=== PATIENT | female | born 1970 | race Caucasian/White ===

== ENCOUNTER 2016-11-30 16:59 | Emergency (ER) | payer BC ==
--- NOTE | 2016-11-30 18:00 | DIAGNOSTIC IMAGING REPORT ---
PROCEDURE: XR LUMBAR SPINE 2 OR 3 VIEWS INDICATION: Fell off horse. Initial encounter. TECHNIQUE: Three views. COMPARISON: None. FINDINGS: Normal alignment without fracture. Straightening of the lumbar spine. Normal disc spaces and soft tissues. IMPRESSION: 1. Loss of lordosis suggestive of muscular spasm.
--- NOTE | 2016-11-30 18:02 | DIAGNOSTIC IMAGING REPORT ---
PROCEDURE: XR HIP BILATERAL INDICATION: Fell off horse. Initial encounter. TECHNIQUE: AP view of the pelvis and hips with lateral views of the bilateral hips. COMPARISON: None. FINDINGS: RIGHT HIP: No fracture or dislocation. Normal joint space. LEFT HIP: No fracture or dislocation. Normal joint space. AP PELVIS: No suspicious osseous lesions. Soft tissues are unremarkable. IMPRESSION: 1. Negative pelvis and bilateral hips.
--- NOTE | 2016-11-30 18:07 | DIAGNOSTIC IMAGING REPORT ---
PROCEDURE: CT CERVICAL SPINE W/O CONTRAST CLINICAL INDICATION: Fell off horse, initial encounter. TECHNIQUE: Noncontrast axial images with sagittal and coronal reformations. COMPARISON: None. FINDINGS: Normal alignment without fracture. Moderate C4-5 degenerative changes. Moderate right C4-5 foraminal stenosis. Mild C4-5 spinal stenosis. Spinal soft tissues are normal. IMPRESSION: 1. No acute changes 2. C4-5 degenerative changes 3. Results discussed with Mely Santillan. All CT scans at this facility use dose modulation, iterative reconstruction, and/or weight-based dosing when appropriate to reduce radiation dose to as low as reasonably achievable.
--- NOTE | 2016-11-30 18:12 | DIAGNOSTIC IMAGING REPORT ---
PROCEDURE: CT HEAD WITHOUT CONTRAST INDICATION: TRAUMA/INJURY TECHNIQUE: Noncontrast axial images with sagittal and coronal reformations. COMPARISON: None. FINDINGS: Filiform radiodensity in one of the right frontal sulci suggestive of a tiny subarachnoid hemorrhage. There is no mass effect, parenchymal hemorrhage or midline shift. Ventricular system and brain parenchyma are normal. 1.1 cm right maxillary sinus polyp. Mastoids are clear. IMPRESSION: 1. Tiny right frontal subarachnoid hemorrhage. 2. Findings discussed with Mely Santillan at 06:03 p.m., [place] Standard Time.
--- NOTE | 2016-11-30 18:33 | ED CLINICAL REPORT ---
Clinical Report - Physicians/Mid Levels [facility] [address] [place] [address] 11/30/2016 17:03 Patient: ALFREDO RUELAS Time Seen: 17:09; initial patient contact, initial documentation, patient care assumed. Arrived- By private vehicle. Historian- patient and friend. History limited by confusion. HISTORY OF PRESENT ILLNESS Chief Complaint: FALL. Location of injuries- head, lower back, right hip and left hip. The injury occurred just prior to arrival. (friend's house). Fell 5-6 feet off a horse and landed on the ground. The patient complains of mild pain. The patient sustained a blow to the head. No neck pain or seizure. The patient had loss of consciousness. (? loc). Not dazed. REVIEW OF SYSTEMS No numbness, dizziness, loss of vision, chest pain or difficulty breathing. No weakness, headache, laceration or vomiting. She has no pain on weight bearing. All systems otherwise negative, except as recorded above. PAST HISTORY Negative. SOCIAL HISTORY Smoker - current status unknown. Alcohol use. (unknown). History of drug use unknown. No recent travel. Visiting locally. FAMILY HISTORY Unable to obtain family medical history due to patient's altered mental status. ADDITIONAL NOTES The nursing notes have been reviewed with agreement regarding the chief complaint, HPI, ROS, PMH and patient medications and allergies. PHYSICAL EXAM Vital Signs: 11/30/2016 17:07 BP: 106/90. HR: 105. RR: 16. O2 saturation: 99%. Pain level now: 410. Have been reviewed as abnormal and appear to be correct. Blood pressure normal. Tachycardic. Respiratory rate normal. Temperature normal. Oxygen saturation normal. Appearance: Alert. She is disoriented, restless and cooperative. She is alert, well hydrated, well nourished, well developed and well dressed. She appears comfortable and has normal color. Appearance is consistent with stated age. No acute distress. Head: Head non-tender. No swelling of head. Forehead: small abrasion of the upper central forehead (very tiny abrasion, less than 1cm to upper forehead near hairline to R side towards center). No erythema, tenderness, swelling, laceration or ecchymosis. No puncture wound, foreign body or deformity. Eyes: Pupils equal, round and reactive to light. EOM intact. ENT: No dental injury. Pharynx normal. Neck: Painless ROM. Non-tender. CVS: Heart sounds normal. Pulses normal. Respiratory: Breath sounds normal. Chest nontender. Abdomen: No visible injury. Soft and nontender. Back: No tenderness. ROM normal. Skin: Skin intact. Skin warm and dry. Normal skin color. Normal skin turgor. Extremities: Normal inspection. Pelvis stable. Extremities atraumatic. No lower extremity edema. Neuro: Meliton Coma Scale: 14- eyes open spontaneously (4); best verbal response- disoriented (4); best motor response- obeys commands (6). Disoriented. Altered mental status: confused, forgetful and disoriented to place and time. Patient slow to respond. Responds to simple questions and commands. Eyes open spontaneously. Best verbal response: disoriented. Best motor response: obeys commands. No cranial nerve deficit. No motor deficit. No weakness. No sensory deficit. No sensory deficit. LABS, X-RAYS, AND EKG X-Rays: LS spine series negative. Pelvis. LS-Spine X-rays: (IMPRESSION: 1. Loss of lordosis suggestive of muscular spasm. Electronically Final signed by:Matheus Bauer MD 11/30/2016 6:00:16 PM). The X-rays were interpreted by the radiologist and contemporaneously by me. Pelvis X-ray: (IMPRESSION: 1. Negative pelvis and bilateral hips. Electronically Final signed by:Matheus Bauer MD 11/30/2016 6:01:49 PM). The X-rays were interpreted by the radiologist and contemporaneously by me. CT C-Spine: No acute disease. (IMPRESSION: 1. No acute changes 2. C4-5 degenerative changes 3. Results discussed with Mely Santillan. All CT scans at this facility use dose modulation, iterative reconstruction, and/or weight-based dosing when appropriate to reduce radiation dose to as low as reasonably achievable. Electronically Final signed by:Matheus Bauer MD 11/30/2016 6:07:31 PM). CT Head: . (IMPRESSION: 1. Tiny right frontal subarachnoid hemorrhage. 2. Findings discussed with Mely Santillan at 06:03 p.m., [place] Standard Time. Electronically Final signed by:Matheus Bauer MD 11/30/2016 6:11:54 PM). The study was interpreted by the radiologist and discussed with the radiologist. Interpretation time: 1808. Laboratory Tests: UA-Culture if indicated: (SORAIDA: 11/30/2016 18:55) ( [facility] [place] 11/30/2016 19:13) Final results Test Result Flag Units (Reference) URINE COLOR YELLOW URINE APPEARANCE SL CLOUDY URINE GLUCOSE NEGATIVE (NEGATIVE) URINE BILIRUBIN NEGATIVE (NEGATIVE) URINE KETONE 1+ (NEGATIVE) URINE SPECIFIC GRAVITY >= 1.030 (1.010-1.030) URINE PH 5.5 (5.0-8.0) URINE PROTEIN 1+ (NEGATIVE) URINE UROBILINOGEN 0.2 EU/dL (0.2-1.0) URINE NITRITE NEGATIVE (NEGATIVE) URINE BLOOD 2+ (NEGATIVE) URINE LEUK ESTERASE NEGATIVE (NEGATIVE) URINE RBC 1-3 rbc/hpf (0-1) URINE WBC 1-3 wbc/hpf (0-1) URINE EPITHELIAL CELLS 1-3 EPI/hpf (0-5) URINE BACTERIA MODERATE (2+ TO 3+) (NONE SEEN) URINE COMMENT CULTURE INDICATED URINE CULTURES ARE SET-UP BASED ON THE FOLLOWING CRITERIA:POSITIVE NITRITEPOSITIVE LEUKOCYTE ESTERASEGREATER THAN 10 WHITE BLOOD CELLSMODERATE (2+) OR GREATER BACTERIA Serum Qualitative: (SORAIDA: 11/30/2016 18:17) ( [facility] 11/30/2016 18:44) Final results Test Result Flag Units (Reference) , SERUM NEGATIVE CBC w Diff: (SORAIDA: 11/30/2016 18:17) ( [facility] 11/30/2016 18:33) Final results Test Result Flag Units (Reference) WHITE BLOOD COUNT 14.4 H K/uL (4.5-11.5) RED BLOOD COUNT 4.10 M/uL (4.00-5.20) HEMOGLOBIN 12.5 gm/dL (12.0-16.0) HEMATOCRIT 36.7 % (36.0-46.0) MEAN CELL VOLUME 90 fL (80-100) MEAN CORPUSCULAR HGB 31 pg (26-34) MEAN CORPUSCULAR HGB CONC 34 g/dL (31-37) RED CELL DISTRIBUTION WIDTH 12.9 % (11.6-14.8) PLATELET COUNT 198 K/uL (150-400) NEUTROPHIL % 81.7 H % (50-75) LYMPH % 13.0 L % (25-40) MONO % 4.7 % (3-14) EOSINOPHIL % 0.1 % (0-4) BASOPHIL % 0.5 % (0-2) PT with INR: (SORAIDA: 11/30/2016 18:17) ( [facility] 11/30/2016 18:54) Final results Test Result Flag Units (Reference) INR 1.0 (0.8-1.2) Low Intensity Therapy: INR 1.5-2.0 PT range 18.5-23.1Mod.Intensity Therapy: INR 2.0-3.0 PT range 23.1-31.5High Intensity Therapy: INR 2.5-3.5 PT range 27.4-35.5High Intensity Therapy 2: INR 3.0-4.0 PT range 31.5-39.3 APTT 25 SECONDS (24-34) Urine Drug Screen: (SORAIDA: 11/30/2016 18:55) ( [facility] 11/30/2016 19:19) Final results Test Result Flag Units (Reference) AMPHETAMINE/METHAMPHETAMINE NEGATIVE (NEGATIVE) BARBITURATE NEGATIVE (NEGATIVE) BENZODIAZEPINE NEGATIVE (NEGATIVE) CANNABINOID NEGATIVE (NEGATIVE) COCAINE NEGATIVE (NEGATIVE) ECSTASY NEGATIVE (NEGATIVE) METHADONE NEGATIVE (NEGATIVE) OPIATE NEGATIVE (NEGATIVE) The urine drug screen is a qualitative screening test fordrug overdose and abuse. All screen results should beconsidered as presumptive.Drugs screened for are as follows:BenzodiazepinesCocaineAmphetamines/MetamphetaminesTHC (Tetrahydrocannabinol)OpiatesBarbituratesEcstasyMethadonePositive results are unconfirmed. For confirmation, notifythe lab for the specimen to be sent to the reference lab.All confirmations must be performed by a differentmethodology.The ingestion of natural herbal and plant productscontaining Ephedra/Ephedra metabolites can produce in urineone or more substances capable of cross reacting withamphetamine/methamphetamine immunoassays. These testsprovide a preliminary result only. A more specificalternative chemical method must be used to obtain aconfirmed analytical result. CMP: (SORAIDA: 11/30/2016 18:17) ( Msg[facility]cv[facility] 11/30/2016 18:55) Final results Test Result Flag Units (Reference) GLUCOSE 98 mg/dL (70-110) BUN 18 mg/dL (7-18) CREATININE 1.0 mg/dL (0.6-1.3) Estimated GFR >60 mL/min Estimated GFR- >60 mL/min Note: Persistent reduction over 3 months in eGFR<60 mL/min/1.73 m2 defines CKD. Patients with eGFR values>=60 mL/min/1.73 m2 may also have CKD if evidence ofpersistent proteinuria. Additional information may be foundat www.kidney.org. SODIUM 144 mmol/L (136-145) POTASSIUM 3.3 L mmol/L (3.5-5.1) CHLORIDE 106 mmol/L (98-107) CARBON DIOXIDE 25 mmol/L (21-32) CALCIUM 8.6 mg/dL (8.5-10.1) TOTAL PROTEIN 7.5 g/dL (6.4-8.2) ALBUMIN 3.7 g/dL (3.3-5.0) BILIRUBIN, TOTAL 1.3 H mg/dL (0.0-1.0) ALKALINE PHOSPHATASE 57 U/L (46-116) AST (SGOT) 42 H U/L (15-37) ALT (SGPT) 38 U/L (12-78) . PROGRESS AND PROCEDURES Peripheral IV Placement: Time: 1809. Performed by me. IV placed in the right antecubital space with an 18g angiocath with aseptic technique and good blood return; one attempt. Saline lock flushed with 3 mL saline. labs obtained from iv site. Course of Care: 1824. spoke to ALEXANDRIA Draper, at [facility] with pt report, got Dr. Quiroga, ER, to accept, and report given to him, pt will be ER to ER transfer having adult health clinical nurse specialist call als transport team 18:39 11/30/16. transfer form completed 18:42 11/30/16. having nurse call family to attempt to get pt's pmh 1929. stopped to check in on pt, pt resting quietly, asking me how she knows me, when she is going home, pt doesn't remember having xrays or ct done, doesn't remember me telling her she was being transferred for sah 1937. ems here for transport, report given to crane crew supervisor. 11/30/2016 19:07 BP: 116/60. HR: 95. RR: 18. O2 saturation: 100%. Temp: 98.6 F. Vital Signs: have been reviewed as normal and appear to be correct. Discussed case with health care provider (call [id number] Dr Quiroga ER). Agreed upon treatment plan. Health care provider will see patient in ED. Patient and friend counseled in person regarding the patient's stable condition, test results, diagnosis and need for transfer. 1810. Differential Diagnosis: Other possible considerations: fall, icb, sah, fx, internal injury, contusions, lacs, abrasions. Above considerations are based on history, physical exam, reassessment, laboratory data and other information. Differential diagnosis was discussed with patient. CLINICAL IMPRESSION Closed head injury. Traumatic subarachnoid hemorrhage. Concussion. Focal traumatic brain injury. Unknown whether a loss of consciousness occurred. Memory loss. Confusion. Fall (horse). (Electronically signed by Mely Santillan A.R.N.P. 11/30/2016 22:02)
--- NOTE | 2016-11-30 18:33 | ED NURSING NOTES ---
Clinical Report - Nurses [facility] [place] [address] 11/30/2016 17:03 Patient: ALFREDO RUELAS TRIAGE Triage time 17:07. Acuity: LEVEL 3. Chief Complaint: FALL (fell off horse. Per friend saddle slipped sideways and pt fell to ground). 17:19 11/30/16. 17:19 11/30/16. MELITON COMA SCORE: Meliton Coma Scale: 14- eyes open spontaneously (4); best verbal response- disoriented (4); best motor response- obeys commands (6). --17:19 Lashawn Roland R.N. 17:07 11/30/16. BP: 106/90. HR: 105. RR: 16. O2 saturation: 99%. Pain level now: 10. Additional comments: low back. --17:19 Lashawn Roland R.N. Weight: 58.9 kg stated. Height/Length: 63 inches Per Patient. BMI: 23. --17:15 Lashawn Roland R.N. Medications None. --18:45 Mare Cheema R.N. Allergies Penicillin. --17:18 Lashawn Roland R.N. History Arrived by private vehicle. Historian: friend and patient. Accompanied by friend. 17:19 11/30/16. This occurred just prior to arrival. Occurred at friend's house. ( Pt has complaints of lower back pain. Pt very confused at this time. Oriented only to self.). The patient had loss of consciousness of uncertain duration. She has had neck pain (denies at this time) and lower back pain. Treatment FEED RESEARCH AIDE: None. Trauma activation: Pre-hospital notification of patient arrival was not received. PAST MEDICAL HX: Tetanus status: unknown. Immunizations: status is unknown. Denies current . ( Past medical hx uncertain, pt poor historian at this time.). FALL RISK ASSESSMENT: Fall risk assessment completed. No fall risk identified. NUTRITIONAL RISK ASSESSMENT: The nutritional risk assessment revealed no deficiencies. FUNCTIONAL ASSESSMENT: Functional assessment: no impairments noted. LEARNING NEEDS ASSESSMENT: The learning needs assessment revealed no barriers. SKIN INTEGRITY ASSESSMENT: Skin integrity risk assessment completed. No skin integrity risk identified. --17:19 Lashawn Roland R.N. PROBLEMS: no known problems. Assessment 17:11/30/16. She states feels the same. --17:19 Lashawn Roland R.N. Interventions 17:11/30/16. 17:11/30/16. To treatment room. --17:19 Lashawn Roland R.N. PHYSICAL ASSESSMENT GENERAL / NEURO / PSYCH: Alert. Appears anxious. The patient is disoriented to place, time and situation. HEENT: Pupils equal, round and reactive to light. Head: abrasion present. Head non-tender. RESPIRATORY: Respirations not labored. CVS: Normal heart rate and rhythm. Pulses within normal limits. Capillary refill less than 2 seconds. GI / : Abdomen soft and nontender. EXTREMITIES: Neuro-vascular status intact to the extremity. SKIN: Skin is warm and dry. --17:20 Lashawn Roland R.N. NURSING PROGRESS NOTES 18:20 11/30/2016 Site #1 started via IV in the left antecubital space with an 18g angiocath, with aseptic technique and good blood return; one attempt. Blood drawn: rainbow set. Labeled in the presence of the patient and sent to the lab. Saline lock flushed with 10 mL saline (accessed by DAPHNIE Alan). --18:21 Mare Cheema R.N. 18:20 11/30/2016 Site #2 started via IV in the left antecubital space with an 18g angiocath, with aseptic technique and good blood return; one attempt. Blood drawn: rainbow set. Labeled in the presence of the patient and sent to the lab. Saline lock flushed with 10 mL saline (accessed by Yumiko Matt RN). --18:21 Mare Cheema R.N. ( first contact with pt. Pt appears confused. Repeating statements " what is happening, where am I going."). --18:24 Mare Cheema R.N. 18:22 11/30/16. BP: 114/59. HR: 99. RR: 16. O2 saturation: 100%. --18:24 Mare Cheema R.N. Patient ID band checked for patient name, birthdate and medical record number: patient confirmed. Instructions provided to collect clean catch urine and patient verbalized understanding. Clean catch urine collected with return of yellow-colored clear urine; sample sent to lab for urinalysis. Specimen labeled in the presence of the patient. --19:09 Mare Cheema R.N. Care transferred and report given (to Ariela Crawley RN). --19:25 Mare Cheema R.N. 19:00 11/30/2016 Started bag #1 1000 mL IV Fluids IV NS (Saline); at 1000 mL/hr over 1 hour(s) via site #1. Allergies verified and confirmed 5 rights. IV patency established. IV site checked: no pain, redness, or swelling. IV flushed thoroughly pre- and post-medication administration. --19:27 Ariela Wiley 19:40 11/30/2016 IV Fluids IV NS Continued: at the rate of 1000 mL/hr. 300 mL remaining bag #1. IV patency established. IV site checked: no pain, redness, or swelling. IV flushed thoroughly. --21:05 Ariela Wiley. DISPOSITION / DISCHARGE 19:07 11/30/16. BP: 116/60. HR: 95. RR: 18. O2 saturation: 100%. Temp: 98.6 F. Pain level now 5/10. --19:08 Mare Cheema R.N. 19:40 11/30/16. BP: 108/60. HR: 98. RR: 20. O2 saturation: 99% on room air. Pain level now: 10. --19:41 Ariela Wiley Condition at departure: stable. Transferred to [facility]. Summary of care provided to transport team. Transported via stretcher by transport team with monitor and IV. Report was given via a fax. --19:41 Ariela Wiley 19:42 11/30/2016 Site #[address] upon transfer. Good blood return present; flushes easily. --19:42 Ariela Wiley 19:42 11/30/2016 Site #[address] upon transfer. Good blood return present; flushes easily. --19:42 Ariela Wiley ( Report given to [employer] ALEXANDRIA Zimmerman). --19:42 Ariela Wiley Departure time: 19:57 Nov 30 2016. --19:57 Ariela Wiley. Locked/Released at 11/30/2016 21:06 by Ariela Wiley,
--- NOTE | 2016-11-30 18:34 | ED ORDER SUMMARY ---
..... Patient: ALFREDO RUELAS OrderSheet [facility] VisitID: [id number] [address] [place] [address] 46y, F Registration Date/Time: 11/30/2016 ORDER SHEET Weight: 58.9 kg (stated) Allergies: Penicillin GENERAL ORDERS: Lumbar Spine 2 or 3V Urgent (17:17 11/30/2016 HBivens A.R.N.P.) (Ack 17:28 RKaruga) (18:05 Domi) Hip Bilat Urgent (17:17 11/30/2016 HBivens A.R.N.P.) (Ack 17:28 RKaruga) (18:05 Domi) CT Cervical Spine wo Cont Urgent (17:17 11/30/2016 HBivens A.R.N.P.) (Ack 17:28 RKaruga) (18:05 Domi) CT Head wo Cont Urgent (17:17 11/30/2016 HBivens A.R.N.P.) (Ack 17:28 RKaruga) (18:05 Domi) CBC w Diff Urgent (18:10 11/30/2016 HBivens A.R.N.P.) (18:34 SReitz R.N.) (Ack 18:36 RKaruga) CMP Urgent (18:10 11/30/2016 HBivens A.R.N.P.) (18:34 SReitz R.N.) (Ack 18:36 RKaruga) Serum Qualitative Urgent (18:10 11/30/2016 HBivens A.R.N.P.) (18:34 SReitz R.N.) (Ack 18:36 RKaruga) PT with INR Urgent (18:12 11/30/2016 HBivens A.R.N.P.) (18:34 SReitz R.N.) (Ack 18:36 RKaruga) PTT Urgent (18:12 11/30/2016 HBivens A.R.N.P.) (18:34 SReitz R.N.) (Ack 18:36 RKaruga) UA-Culture if indicated Urgent (18:43 11/30/2016 HBivens A.R.N.P.) (Ack 18:50 RKaruga) (19:08 SReitz R.N.) Urine Drug Screen Urgent (18:43 11/30/2016 HBivens A.R.N.P.) (Ack 18:50 RKaruga) (19:08 SReitz R.N.) MEDICATION ORDERS: IV FLUIDS: IV Saline Lock (18:10 11/30/2016 HBivens A.R.N.P.) (18:22 SReitz R.N.) IV NS : initial bolus 1000 mL (1000 mL/hr), then none - (NOW) (18:12 11/30/2016 HBivens A.R.N.P.) (19:27 HSoule) IV Saline Lock (18:12 11/30/2016 HBivens A.R.N.P.) (18:21 SReitz R.N.) ORDER SHEET NOTES: [Electronically signed by Ariela Wiley (21:06 11/30/2016)] [Electronically signed by Mely Santillan A.R.N.P. (22:02 11/30/2016)] [Electronically locked/signed by Ariela Wiley (21:06 11/30/2016)]
--- NOTE | 2016-11-30 18:34 | ED ORDER SUMMARY ---
..... Patient: ALFREDO RUELAS OrderSheet [facility] VisitID: [id number] [address] [place] [address] 46y, F Registration Date/Time: 11/30/2016 ORDER SHEET Weight: 58.9 kg (stated) Allergies: Penicillin GENERAL ORDERS: Lumbar Spine 2 or 3V Urgent (17:17 11/30/2016 HBivens A.R.N.P.) (Ack 17:28 RKaruga) (18:05 Domi) Hip Bilat Urgent (17:17 11/30/2016 HBivens A.R.N.P.) (Ack 17:28 RKaruga) (18:05 Domi) CT Cervical Spine wo Cont Urgent (17:17 11/30/2016 HBivens A.R.N.P.) (Ack 17:28 RKaruga) (18:05 Domi) CT Head wo Cont Urgent (17:17 11/30/2016 HBivens A.R.N.P.) (Ack 17:28 RKaruga) (18:05 Domi) CBC w Diff Urgent (18:10 11/30/2016 HBivens A.R.N.P.) (18:34 SReitz R.N.) (Ack 18:36 RKaruga) CMP Urgent (18:10 11/30/2016 HBivens A.R.N.P.) (18:34 SReitz R.N.) (Ack 18:36 RKaruga) Serum Qualitative Urgent (18:10 11/30/2016 HBivens A.R.N.P.) (18:34 SReitz R.N.) (Ack 18:36 RKaruga) PT with INR Urgent (18:12 11/30/2016 HBivens A.R.N.P.) (18:34 SReitz R.N.) (Ack 18:36 RKaruga) PTT Urgent (18:12 11/30/2016 HBivens A.R.N.P.) (18:34 SReitz R.N.) (Ack 18:36 RKaruga) UA-Culture if indicated Urgent (18:43 11/30/2016 HBivens A.R.N.P.) (Ack 18:50 RKaruga) (19:08 SReitz R.N.) Urine Drug Screen Urgent (18:43 11/30/2016 HBivens A.R.N.P.) (Ack 18:50 RKaruga) (19:08 SReitz R.N.) MEDICATION ORDERS: IV FLUIDS: IV Saline Lock (18:10 11/30/2016 HBivens A.R.N.P.) (18:22 SReitz R.N.) IV NS : initial bolus 1000 mL (1000 mL/hr), then none - (NOW) (18:12 11/30/2016 HBivens A.R.N.P.) (19:27 HSoule) IV Saline Lock (18:12 11/30/2016 HBivens A.R.N.P.) (18:21 SReitz R.N.) ORDER SHEET NOTES: [Electronically signed by Ariela Wiley (21:06 11/30/2016)] [Electronically signed by Mely Santillan A.R.N.P. (22:02 11/30/2016)] [Electronically locked/signed by Ariela Wiley (21:06 11/30/2016)]
--- NOTE | 2016-11-30 22:02 | ED DISCHARGE INSTRUCTIONS ---
Patient: ALFREDO RUELAS General Instructions [facility] VisitID: [id number] [address] [place] [address] 46y, F Registration Date/Time: 11/30/2016 Closed head injury. Traumatic subarachnoid hemorrhage. Concussion. Focal traumatic brain injury. Unknown whether a loss of consciousness occurred. Memory loss. Confusion. Fall (horse). (Electronically signed by Mely Santillan A.R.N.P. 11/30/2016 22:02)
--- NOTE | 2016-11-30 22:02 | ED MAR SUMMARY ---
..... Medication Administration Record [facility] [address] [place] [address] Patient: ALFREDO RUELAS Visit ID: [id number] 46y, F Weight: 58.9 kg Height/Length: 63 in BMI: 23 ALLERGIES: Penicillin Start 19:00 11/30/2016 Ariela Wiley,, Continued Upon Disposition 19:40 11/30/2016 Ariela Wiley, Medication Administered: IV NS (SALINE), Dose: IV Fluids over 1 hour(s), Rate: 1000 mL/hr, Dispensed: 1000 mL bag, Site: #1 left AC. Medication Ordered: IV NS : initial bolus 1000 mL (1000 mL/hr), then none - (NOW).
--- NOTE | 2016-11-30 22:02 | ED DISCHARGE INSTRUCTIONS ---
Patient: ALFREDO RUELAS General Instructions [facility] VisitID: [id number] [address] [place] [address] 46y, F Registration Date/Time: 11/30/2016 Closed head injury. Traumatic subarachnoid hemorrhage. Concussion. Focal traumatic brain injury. Unknown whether a loss of consciousness occurred. Memory loss. Confusion. Fall (horse). (Electronically signed by Mley Santillan A.R.N.P. 11/30/2016 22:02)
--- NOTE | 2016-11-30 22:02 | ED MED RECONCILIATION SUMMARY ---
Patient: ALFREDO RUELAS Medication Reconciliation Report [facility] VisitID: [id number] [address] [place] [address] 46y, F Registration Date/Time: 11/30/2016 Weight: 58.9 kg Height/Length: 63 in. BMI: 23.0 ALLERGIES: Penicillin The patient's Home Medications are listed below: NONE. The source(s) of the original Home Medication information: Not obtained. The following Medications were given to the patient in the Emergency Department: IV NS IV Fluids bolus 0, then 1000 mL/hr, administered: 11/30/2016 7:00:00 PM The following Medications were prescribed to the patient: None.
--- NOTE | 2016-11-30 22:02 | ED MED RECONCILIATION SUMMARY ---
Patient: ALFREDO RUELAS Medication Reconciliation Report [facility] VisitID: [id number] [address] [place] [address] 46y, F Registration Date/Time: 11/30/2016 Weight: 58.9 kg Height/Length: 63 in. BMI: 23.0 ALLERGIES: Penicillin The patient's Home Medications are listed below: NONE. The source(s) of the original Home Medication information: Not obtained. The following Medications were given to the patient in the Emergency Department: IV NS IV Fluids bolus 0, then 1000 mL/hr, administered: 11/30/2016 7:00:00 PM The following Medications were prescribed to the patient: None.
--- NOTE | 2016-11-30 22:02 | ED MAR SUMMARY ---
..... Medication Administration Record [facility] [address] [place] [address] Patient: ALFREDO RUELAS Visit ID: [id number] 46y, F Weight: 58.9 kg Height/Length: 63 in BMI: 23 ALLERGIES: Penicillin Start 19:00 11/30/2016 Ariela Wiley,, Continued Upon Disposition 19:40 11/30/2016 Ariela Wiley, Medication Administered: IV NS (SALINE), Dose: IV Fluids over 1 hour(s), Rate: 1000 mL/hr, Dispensed: 1000 mL bag, Site: #1 left AC. Medication Ordered: IV NS : initial bolus 1000 mL (1000 mL/hr), then none - (NOW).
== END 2016-11-30 19:45 | disposition short-term general hospital (02) ==
LOC: ED SRH 16:59
DX: S06.6X0A Traumatic subarachnoid hemorrhage without loss of consciousness, initial encounter (principal); R41.0 Disorientation, unspecified; R41.3 Other amnesia; V80.010A Animal-rider injured by fall from or being thrown from horse in noncollision accident, initial encounter; Y93.52 Activity, horseback riding; Y92.009 Unspecified place in unspecified non-institutional (private) residence as the place of occurrence of the external cause
CPT/HCPCS: 90004; 90100; 90469; 92760; 92761; 92762; 92763; 92764; 92765; 92766; 92767; 94001; 94060; 95059; 98428